=== PATIENT | male | born 1995 | race Caucasian/White ===

== ENCOUNTER 2017-08-02 19:52 | Emergency (ER) | payer OTHER ==
[~2017-08-02] VITALS: Ht 180.3 cm; Wt 72.7 kg
[2017-08-02 19:55] VITALS: BP 149/80; TEMP 98.6
[2017-08-02] MEDS ORDERED: LEXAPRO20 MG PO (19:57)
[2017-08-02] MEDS ORDERED: ADDERALL XR20 MG PO (19:57)
[2017-08-02] MEDS ORDERED: CEPHALEXIN500 M1 PO (21:36)
[2017-08-02 21:52] VITALS: PULSE 101
== END 2017-08-02 21:51 | disposition home or self-care (01) ==
LOC: COL.ER 19:52
DX: S66.121A Laceration of flexor muscle, fascia and tendon of left index finger at wrist and hand level, initial encounter (principal); F32.9 Major depressive disorder, single episode, unspecified; W26.0XXA Contact with knife, initial encounter

== ENCOUNTER 2017-08-23 14:45 | Outpatient (RCR) | payer OTHER ==
[~2017-08-23 14:45] MED LIST: ADDERALL XR20 MG PO; CEPHALEXIN500 M1 PO; LEXAPRO20 MG PO
== END 2017-09-06 12:48 ==
LOC: WSOT 14:45
DX: Z47.89 Encounter for other orthopedic aftercare (principal); Z98.890 Other specified postprocedural states

== ENCOUNTER 2017-09-01 00:05 | Emergency (ER) | payer OTHER ==
[~2017-09-01] VITALS: Ht 180.3 cm; Wt 68.2 kg
[2017-09-01 00:10] VITALS: TEMP 97
[2017-09-01 00:29] LABS: BASO % 0.5 % (0.0-2.0); EOS # 0.1 (0.0-0.7); GRAN # 3.9 (1.4-6.5); GRAN % 46.8 % (42.2-75.2); HEMATOCRIT 41.9 % (36.0-47.0); HEMOGLOBIN 14.6 g/dl (12.5-16.1); LYMPH # 3.4 (1.2-3.4); LYMPH % 41.5 % (20.0-51.0); MEAN CELL VOLUME 86 fl (80.0-95.0); MEAN CORPUSCULAR HEMOGLOBIN 30 pg (26.0-32.0); MEAN CORPUSCULAR HGB CONC 35 g/dl (33.0-37.0); MEAN PLATELET VOLUME 9.1 fl (7.4-10.4); MONO # 0.8 (0.1-0.6); MONO % 9.7 % (1.7-9.3); PLATELET COUNT 248 K/mm3 (130-400); WHITE BLOOD COUNT 8.2 K/mm3 (4.8-10.8)
[2017-09-01 00:42] LABS: ADJUSTED CALCIUM 8.5 mg/dL (8.4-10.2); ALANINE AMINOTRANSFERASE 24 U/L (21-72); ALKALINE PHOSPHATASE 77 U/L (50-136); ANION GAP 19 mmol/L (7-16); BILIRUBIN,TOTAL 0.5 mg/dL (0.0-1.0); BLOOD UREA NITROGEN 11 mg/dL (9-20); CALCIUM 9.3 mg/dL (8.4-10.2); CARBON DIOXIDE 25 mmol/L (22-30); CHLORIDE 105 mmol/L (98-107); CREATININE, serum 0.76 mg/dL (0.66-1.25); GLUCOSE 108 mg/dL (74-106); POTASSIUM 3.9 mmol/L (3.4-5.0); SODIUM 149 mmol/L (137-145)
[2017-09-01 00:53] LABS: AMPHETAMINE URINE POSITIVE; BARBITURATES URINE NEGATIVE; BENZODIAZEPINES URINE NEGATIVE; BUPRENORPHINE URINE NEGATIVE; METHADONE URINE NEGATIVE; OPIATES URINE NEGATIVE; OXYCODONE URINE NEGATIVE; PHENCYCLIDINE URINE NEGATIVE; PROPOXYPHENE URINE NEGATIVE; THC CANNABINOIDS URINE NEGATIVE; TRICYCLIC ANTIDEPRESS URINE NEGATIVE
[2017-09-01 00:53] LABS: ACETAMINOPHEN < 10 ug/mL (10-30); ALCOHOL(ethanol),MEDICAL 367 mg/dL; SALICYLATE < 1.0 mg/dL
[2017-09-01 06:30] VITALS: BP 117/70; PULSE 95
== END 2017-09-01 07:03 | disposition home or self-care (01) ==
LOC: COL.ER 00:05
PROVIDERS: Physician Assistant
DX: F10.129 Alcohol abuse with intoxication, unspecified (principal); F32.9 Major depressive disorder, single episode, unspecified; Y90.8 Blood alcohol level of 240 mg/100 ml or more